=== PATIENT | male | born 1960 | race Caucasian/White ===

== ENCOUNTER 2024-04-15 14:21 | Inpatient (IN) | payer OTHER, SELFPAY ==
[~2024-04-15 14:21] MED LIST: Iopamidol-370 76% 500 ML MDV (1 ML CHARGE) ONE
[2024-04-15] MEDS ORDERED: NS ONE ×2 (17:24→21:37)
[2024-04-15] MEDS ORDERED: Vasopressin 20 UNITS/ML VIAL ONE (17:24)
[2024-04-15] MEDS ORDERED: Pantoprazole 40 MG VIAL ONE (17:24)
[2024-04-15] MEDS ORDERED: Aspirin 300 MG Suppository ONE ×2 (17:24)
[2024-04-15] MEDS ORDERED: NOREPINEPHRINE ONE ×2 (17:24→21:37)
[2024-04-15] MEDS ORDERED: cefTRIAXone (ROCEPHIN) 1 GM VIAL ONE (17:24)
[2024-04-15] MEDS ORDERED: Droperidol 5 MG/2 ML VIAL ONE ×2 (17:24)
[2024-04-15] MEDS ORDERED: Vasopressin In 0.9 % NaCl 40 UNIT in Premix 1 BAG IV SCH (20:30)
[2024-04-15] MEDS ORDERED: Albumin 25% 25 GM (100 mL) BOT ONE (21:37)
[2024-04-15] MEDS ORDERED: Sodium Bicarb 50 MEQ/50 ML Abboject 8.4% SYRINGE ONE (21:37)
[2024-04-15] MEDS ORDERED: Sodium Bicarb 50 MEQ/50 ML Abboject 8.4% SYRINGE IVP SCH (21:40)
[2024-04-16] MEDS ORDERED: Albumin 25% 25 GM (100 mL) BOT ONE ×3 (04:24→21:14)
[2024-04-16] MEDS ORDERED: cefTRIAXone (ROCEPHIN) 1 GM VIAL ONE (04:24)
[2024-04-16] MEDS ORDERED: NOREPINEPHRINE ONE (04:24)
[2024-04-16] MEDS ORDERED: NS ONE (04:24)
[2024-04-16] MEDS ORDERED: Pantoprazole 40 MG VIAL ONE (10:02)
[2024-04-16] MEDS ORDERED: Heparin 5,000 UNITS/ML VIAL ONE ×3 (10:02→21:14)
[2024-04-16] MEDS ORDERED: Magnesium 2 GM/50 ML(in water) 2 GM in Premix 1 BAG IVPB SCH (10:45)
[2024-04-16] MEDS ORDERED: Magnesium 2 GM/50 ML BAG (IN WATER) ONE (12:19)
[2024-04-16] MEDS ORDERED: POTASSIUM CHLORIDE 40 MEQ ONE (12:19)
[2024-04-16] MEDS ORDERED: Vancomycin 1 GM/200 ML (FROZEN) BAG ONE (15:30)
[2024-04-16] MEDS: Albumin 25% 25 GM (100 mL) BOT IVPB SCH (23:40)
[2024-04-16] MEDS: Sodium Chloride 0.9% 1,000 ML IV SCH (23:40)
[2024-04-16] MEDS: Potassium Chloride 20 MEQ in Premix 1 BAG IVPB SCH (23:41)
[2024-04-16] MEDS: cefTRIAXone\\ROCEPHIN 1 GM in Sodium Chloride 0.9% 100 ML IVPB SCH (23:41)
[2024-04-17 01:29] LABS: INR-International Normal Ratio 2.2; Prothrombin Time 24.7 sec (12.0-14.7)
[2024-04-17 01:32] LABS: #Neutrophils 8.83 10x3/uL (1.40-6.50); %Lymphocytes 4.8 % (21.0-51.0); %Monocytes 5.1 % (0.0-10.0); %Neutrophils 89.3 % (42.0-75.0); Hematocrit 23.6 % (42.0-52.0); Hemoglobin 7.6 g/dL (14.0-18.0); Mean Corpuscular HGB CONC 32.2 g/dL (32.0-36.0); Mean Corpuscular Hemoglobin 27.8 pg (27.0-31.0); Mean Corpuscular Volume 86.4 fL (78.0-98.0); Mean Platelet Volume 11.4 fL (7.4-10.4); Platelet Count 178 10x3/uL (130-400); RBC Distribution Width 21.3 % (11.5-14.5); Red Blood Cell (RBC) Count 2.73 mill/uL (4.70-6.10); White Blood Cell (WBC) Count 9.88 10x3/uL (4.8-10.8)
[2024-04-17] MEDS ORDERED: cefTRIAXone (ROCEPHIN) 1 GM VIAL ONE (03:49)
[2024-04-17] MEDS ORDERED: NOREPINEPHRINE ONE (03:49)
[2024-04-17] MEDS: cefTRIAXone\\ROCEPHIN 1 GM in Sodium Chloride 0.9% 100 ML IVPB SCH (03:49)
[2024-04-17] MEDS: Lactated Ringer's 1,000 ML IV SCH (03:49)
[2024-04-17] MEDS ORDERED: NS ONE (03:49)
[2024-04-17 04:39] VITALS: BMI 25.5
[2024-04-17] MEDS: NOREPINEPHRINE 8 MG/250 ML-D5W 250 ML IVPB SCH (04:40)
[2024-04-17 05:26] LABS: #Basophils Less than 0.03 10x3/uL (0.0-0.2); #Eosinophils Less than 0.03 10x3/uL (0.0-0.7); %Eosinophils 0.2 % (0.0-10.0); %Lymphocytes 5.6 % (21.0-51.0); %Monocytes 6.5 % (0.0-10.0); Hematocrit 26.6 % (42.0-52.0); Hemoglobin 8.5 g/dL (14.0-18.0); Mean Corpuscular Hemoglobin 27.8 pg (27.0-31.0); Mean Corpuscular Volume 86.9 fL (78.0-98.0); Mean Platelet Volume 10.7 fL (7.4-10.4); Platelet Count 122 10x3/uL (130-400); RBC Distribution Width 19.9 % (11.5-14.5); Red Blood Cell (RBC) Count 3.06 mill/uL (4.70-6.10)
[2024-04-17 05:31] LABS: INR-International Normal Ratio 1.7
[2024-04-17 05:32] LABS: PTT 39.6 sec (22.9-36.1)
[2024-04-17 06:01] LABS: ALT (SGPT) 42 U/L (8-55); AST (SGOT) 82 U/L (5-34); Albumin 2.9 g/dL (3.4-4.8); Alkaline Phosphatase 95 U/L (40-110); Anion Gap 15 mmol/L (10-20); BUN (Urea Nitrogen) 38 mg/dL (8.4-25.7); Calc. Creatinine Clearance 36 mL/min (70-130); Calcium 7.8 mg/dL (7.8-10.44); Carbon Dioxide 17 mmol/L (23-31); Chloride 117 mmol/L (98-107); Estimated GFR 37; Globulin 3.2 g/dL (2.4-3.5); Glucose 137 mg/dL (80-115); Potassium 2.2 mmol/L (3.5-5.1); Protein, Total 6.1 g/dL (5.8-8.1); Sodium 147 mmol/L (136-145)
[2024-04-17 06:35] LABS: Anisocytosis SLIGHT = 6-15 cells HPF (0-5); Burr Cells SLIGHT = 2-5 cells HPF (0-1); Hypochromia SLIGHT = 6-15 cells HPF (0-5); Platelet Adequacy Comment Platelets Decreased; Poikilocytosis SLIGHT = 6-15 cells HPF (0-5); Polychromasia SLIGHT = 2-3 cells HPF (0-2); Schistocytes SLIGHT = 2-5 cells HPF (0-1)
[2024-04-17] MEDS ORDERED: Potassium Chloride 20 MEQ (100 mL) BAG ONE (06:35)
[2024-04-17] MEDS: Potassium Chloride 20 MEQ in Premix 1 BAG IVPB SCH (07:15)
[2024-04-17 07:57] LABS: ALT (SGPT) 45 U/L (8-55); AST (SGOT) 142 U/L (5-34); Albumin 2.2 g/dL (3.4-4.8); Alkaline Phosphatase 91 U/L (40-110); Anion Gap 20 mmol/L (10-20); BUN (Urea Nitrogen) 43 mg/dL (8.4-25.7); Calc. Creatinine Clearance 35 mL/min (70-130); Calcium 7.4 mg/dL (7.8-10.44); Carbon Dioxide 12 mmol/L (23-31); Chloride 114 mmol/L (98-107); Estimated GFR 36; Globulin 3.6 g/dL (2.4-3.5); Glucose 148 mg/dL (80-115); Magnesium 1.8 mg/dL (1.6-2.6); Phosphorus 6.2 mg/dL (2.3-4.7); Protein, Total 5.8 g/dL (5.8-8.1); Sodium 143 mmol/L (136-145)
[2024-04-17 08:02] LABS: Lactic Acid 1.12 mmol/L (0.5-2.2)
[2024-04-17 10:43] LABS: Magnesium 2.2 mg/dL (1.6-2.6)
[2024-04-17] MEDS: Potassium Chloride 40 MEQ in Sodium Chloride 0.45% 1,000 ML IV SCH (10:56)
[2024-04-17] MEDS ORDERED: Vancomycin Dose by Levels Sliding Scale (Wt <71) FS SCH (11:45)
[2024-04-17] MEDS ORDERED: Electrolyte Replacement Protocol FS PRN (13:00)
[2024-04-17] MEDS ORDERED: Electrolyte Replacement Protocol 1 EACH FS SCH (13:00)
[2024-04-17 13:08] LABS: Hematocrit 22.7 % (42.0-52.0); Hemoglobin 7.3 g/dL (14.0-18.0)
[2024-04-17 13:16] LABS: Vancomycin, Trough 17.7 ug/mL
[2024-04-17] MEDS ORDERED: Vancomycin 1 GM in Premix 1 BAG IVPB SCH (15:00)
[2024-04-17 15:02] LABS: Hematocrit 24.4 % (42.0-52.0); Hemoglobin 7.8 g/dL (14.0-18.0); Mean Corpuscular Volume 87.5 fL (78.0-98.0); Mean Platelet Volume 10.8 fL (7.4-10.4); Platelet Count 128 10x3/uL (130-400); RBC Distribution Width 20.2 % (11.5-14.5); Red Blood Cell (RBC) Count 2.79 mill/uL (4.70-6.10)
[2024-04-17] MEDS: Vancomycin HCl 500 MG in Sodium Chloride 0.9% 100 ML IVPB SCH (15:55)
[2024-04-17 16:31] LABS: Potassium 2.5 mmol/L (3.5-5.1)
[2024-04-17] MEDS: LevoFLOXacin 250 mg/D5W 250 MG in Premix 1 BAG IVPB SCH (17:00)
[2024-04-17] MEDS: Potassium Chloride 40 MEQ in Premix 1 BAG IVPB SCH (17:06)
[2024-04-17] MEDS: metroNIDAZOLE 500 MG in Premix 1 BAG IVPB SCH (21:54)
[2024-04-18 05:52] LABS: ALT (SGPT) 36 U/L (8-55); AST (SGOT) 56 U/L (5-34); Albumin 2.4 g/dL (3.4-4.8); Alkaline Phosphatase 87 U/L (40-110); Anion Gap 12 mmol/L (10-20); BUN (Urea Nitrogen) 33 mg/dL (8.4-25.7); Bilirubin, Total 0.8 mg/dL (0.2-1.2); Calc. Creatinine Clearance 44 mL/min (70-130); Calcium 7.7 mg/dL (7.8-10.44); Carbon Dioxide 17 mmol/L (23-31); Chloride 118 mmol/L (98-107); Estimated GFR 47; Glucose 109 mg/dL (80-115); Magnesium 1.8 mg/dL (1.6-2.6); Potassium 2.8 mmol/L (3.5-5.1); Protein, Total 5.4 g/dL (5.8-8.1); Sodium 144 mmol/L (136-145)
[2024-04-18 06:17] LABS: #Basophils Less than 0.03 10x3/uL (0.0-0.2); %Eosinophils 0.8 % (0.0-10.0); %Lymphocytes 4.8 % (21.0-51.0); Hematocrit 28.1 % (42.0-52.0); Hemoglobin 8.9 g/dL (14.0-18.0); Mean Corpuscular HGB CONC 31.7 g/dL (32.0-36.0); Mean Corpuscular Volume 88.4 fL (78.0-98.0); Mean Platelet Volume 9.8 fL (7.4-10.4); Platelet Count 93 10x3/uL (130-400); RBC Distribution Width 20.7 % (11.5-14.5); Red Blood Cell (RBC) Count 3.18 mill/uL (4.70-6.10)
[2024-04-18] MEDS: Magnesium 2 GM/50 ML(in water) 2 GM in Premix 1 BAG IVPB SCH (07:38)
[2024-04-18] MEDS: Potassium Bicarbonate/Cit Ac 20 MEQ TAB PO SCH (07:38)
[2024-04-18] MEDS: Sodium Bicarbonate 75 MEQ in Dextrose 5 %-0.45 % NaCl 1,000 ML IV SCH (15:19)
[2024-04-18] MEDS: FLU (Fluarix Triv) TS24-25(6MOS UP)/PF 45 MCG/0.5 ML Syringe IM ONE (15:35)
[2024-04-18] MEDS: LevoFLOXacin 750 mg/D5W 750 MG in Premix 1 BAG IVPB SCH (18:39)
[2024-04-19 10:11] LABS: Hematocrit 28.3 % (42.0-52.0); Mean Corpuscular HGB CONC 31.8 g/dL (32.0-36.0); Mean Corpuscular Hemoglobin 27.8 pg (27.0-31.0); Mean Corpuscular Volume 87.3 fL (78.0-98.0); Platelet Count 70 10x3/uL (130-400); RBC Distribution Width 20.6 % (11.5-14.5); Red Blood Cell (RBC) Count 3.24 mill/uL (4.70-6.10)
[2024-04-19 10:33] LABS: Anisocytosis MARKED = >30 cells HPF (0-5); Burr Cells SLIGHT = 2-5 cells HPF (0-1); Macrocytosis MODERATE=16-30 cells HPF (0-5); Ovalocytes SLIGHT = 2-5 cells HPF (0-1); Platelet Adequacy Comment Platelets Decreased; Polychromasia MODERATE = 3-4 cells HPF (0-2); Schistocytes SLIGHT = 2-5 cells HPF (0-1)
[2024-04-19 10:35] LABS: Anion Gap 11 mmol/L (10-20); BUN (Urea Nitrogen) 27 mg/dL (8.4-25.7); Calc. Creatinine Clearance 59 mL/min (70-130); Calcium 7.4 mg/dL (7.8-10.44); Carbon Dioxide 15 mmol/L (23-31); Chloride 111 mmol/L (98-107); Estimated GFR 66; Glucose 161 mg/dL (80-115); Magnesium 1.7 mg/dL (1.6-2.6); Sodium 134 mmol/L (136-145)
[2024-04-19 10:36] LABS: #Basophils Less than 0.03 10x3/uL (0.0-0.2); %Basophils 0.2 % (0.0-1.0); %Eosinophils 1.2 % (0.0-10.0); %Lymphocytes 5.6 % (21.0-51.0); %Monocytes 8.7 % (0.0-10.0); %Neutrophils 83.5 % (42.0-75.0)
[2024-04-19] MEDS: Potassium Bicarbonate/Cit Ac 20 MEQ TAB PO SCH (12:11)
[2024-04-19] MEDS: Magnesium 2 GM/50 ML(in water) 2 GM in Premix 1 BAG IVPB SCH (12:11)
[2024-04-20 06:57] LABS: ALT (SGPT) 29 U/L (8-55); AST (SGOT) 31 U/L (5-34); Albumin 2.5 g/dL (3.4-4.8); Alkaline Phosphatase 86 U/L (40-110); Anion Gap 10 mmol/L (10-20); BUN (Urea Nitrogen) 22 mg/dL (8.4-25.7); Calc. Creatinine Clearance 75 mL/min (70-130); Calcium 7.7 mg/dL (7.8-10.44); Carbon Dioxide 18 mmol/L (23-31); Chloride 111 mmol/L (98-107); Estimated GFR 83; Globulin 3.1 g/dL (2.4-3.5); Glucose 109 mg/dL (80-115); Potassium 3.2 mmol/L (3.5-5.1); Protein, Total 5.6 g/dL (5.8-8.1); Sodium 136 mmol/L (136-145)
[2024-04-20 08:04] LABS: #Basophils Less than 0.03 10x3/uL (0.0-0.2); %Basophils 0.2 % (0.0-1.0); %Eosinophils 1.4 % (0.0-10.0); %Lymphocytes 5.8 % (21.0-51.0); %Monocytes 12.8 % (0.0-10.0); %Neutrophils 79.3 % (42.0-75.0); Hematocrit 29.7 % (42.0-52.0); Hemoglobin 9.3 g/dL (14.0-18.0); Mean Corpuscular HGB CONC 31.3 g/dL (32.0-36.0); Mean Corpuscular Hemoglobin 27.9 pg (27.0-31.0); Mean Corpuscular Volume 89.2 fL (78.0-98.0); Platelet Count 64 10x3/uL (130-400); RBC Distribution Width 20.9 % (11.5-14.5); Red Blood Cell (RBC) Count 3.33 mill/uL (4.70-6.10)
[2024-04-20 09:32] LABS: Burr Cells SLIGHT = 2-5 cells HPF (0-1); Hypersegmented Neutrophil SLIGHT (None Seen); Platelet Adequacy Comment Platelets Decreased; Polychromasia SLIGHT = 2-3 cells HPF (0-2); Schistocytes SLIGHT = 2-5 cells HPF (0-1); Tear Drops SLIGHT = 2-5 cells HPF (0-1)
[2024-04-20 10:59] LABS: Lactic Acid 2.11 mmol/L (0.5-2.2)
[2024-04-20] MEDS ORDERED: Lidocaine 1% PF 5 ML VIAL ONE (11:19)
[2024-04-20 11:39] LABS: Bilirubin 1+ (Negative); Blood, Urine Trace (Negative); Clarity Clear (Clear); Glucose, Urine (Dipstick) Negative (Negative); Ketone, Urine Trace mg/dL (Negative); Leukocyte 75 Leu/uL (Negative); Nitrite Negative (Negative); Protein, Urine (Dipstick) 50 mg/dL (Neg-Trace); Specific Gravity, Urine 1.017 (1.002-1.036); Squamous Epithelial 0-3 HPF (0-3); Urobilinogen Normal mg/dL (Less than 2)
[2024-04-20 11:40] LABS: Cocaine Metabolite Screen Not Detected (NotDetected); Methamphetamine Detected (NotDetected); Phencyclidine (PCP) Not Detected (NotDetected); THC/Cannabinoid Screen Not Detected (NotDetected)
[2024-04-20 11:41] LABS: Amphetamine Not Detected (NotDetected); Barbiturates Screen Not Detected (NotDetected); Benzodiazepine Screen Not Detected (NotDetected); Methadone Not Detected (NotDetected); Opiate Screen Not Detected (NotDetected); Oxycodone Screen Not Detected (NotDetected); Tricyclic Screen Not Detected (NotDetected)
[2024-04-20 12:46] VITALS: BMI 27.2
[2024-04-20] MEDS: Potassium Bicarbonate/Cit Ac 20 MEQ TAB PO SCH (13:58)
[2024-04-20] MEDS: LevoFLOXacin 750 mg/D5W 750 MG in Premix 1 BAG IVPB SCH (14:38)
[2024-04-20] MEDS: metroNIDAZOLE 500 MG TAB PO SCH (20:40)
[2024-04-21] MEDS: LevoFLOXacin 500 MG TAB PO SCH (05:33)
[2024-04-21 06:59] LABS: #Basophils Less than 0.03 10x3/uL (0.0-0.2); %Basophils 0.2 % (0.0-1.0); %Eosinophils 1.4 % (0.0-10.0); %Lymphocytes 7.1 % (21.0-51.0); %Monocytes 13.6 % (0.0-10.0); %Neutrophils 77.1 % (42.0-75.0); Hematocrit 32.2 % (42.0-52.0); Mean Corpuscular HGB CONC 31.1 g/dL (32.0-36.0); Mean Corpuscular Hemoglobin 27.9 pg (27.0-31.0); Mean Corpuscular Volume 89.9 fL (78.0-98.0); Platelet Count 66 10x3/uL (130-400); RBC Distribution Width 21.4 % (11.5-14.5); Red Blood Cell (RBC) Count 3.58 mill/uL (4.70-6.10)
[2024-04-21 07:03] LABS: Anion Gap 10 mmol/L (10-20); BUN (Urea Nitrogen) 16 mg/dL (8.4-25.7); Calc. Creatinine Clearance 87 mL/min (70-130); Calcium 7.5 mg/dL (7.8-10.44); Carbon Dioxide 19 mmol/L (23-31); Chloride 109 mmol/L (98-107); Estimated GFR 97; Glucose 104 mg/dL (80-115); Potassium 3.7 mmol/L (3.5-5.1); Sodium 134 mmol/L (136-145)
[2024-04-21 11:42] LABS: ALT (SGPT) 45 U/L (8-55); AST (SGOT) 163 U/L (5-34); Albumin 1.9 g/dL (3.4-4.8); Alkaline Phosphatase 95 U/L (40-110); Anion Gap 17 mmol/L (10-20); BUN (Urea Nitrogen) 45 mg/dL (8.4-25.7); Calc. Creatinine Clearance 35 mL/min (70-130); Calcium 7.1 mg/dL (7.8-10.44); Carbon Dioxide 15 mmol/L (23-31); Chloride 115 mmol/L (98-107); Estimated GFR 34; Globulin 3.5 g/dL (2.4-3.5); Glucose 129 mg/dL (80-115); Potassium 3.4 mmol/L (3.5-5.1); Protein, Total 5.4 g/dL (5.8-8.1); Sodium 144 mmol/L (136-145)
[2024-04-21 13:40] VITALS: BP 110/72; TEMP 98.1
[2024-04-26 14:43] LABS: Troponin I 0.157 ng/mL (< 0.028)
[2024-04-26 15:23] LABS: Anion Gap 20 mmol/L (10-20); BUN (Urea Nitrogen) 41 mg/dL (8.4-25.7); Calc. Creatinine Clearance 0 mL/min (70-130); Carbon Dioxide 14 mmol/L (23-31); Chloride 113 mmol/L (98-107); Estimated GFR 30; Potassium 3.9 mmol/L (3.5-5.1); Sodium 143 mmol/L (136-145)
[2024-04-26 15:25] LABS: ALT (SGPT) 48 U/L (8-55); AST (SGOT) 195 U/L (5-34); Acetaminophen Less than 10 mcg/mL (Less than 10); Albumin 1.9 g/dL (3.4-4.8); Alkaline Phosphatase 95 U/L (40-110); Bilirubin, Total 1.5 mg/dL (0.2-1.2); Globulin 3.8 g/dL (2.4-3.5); Glucose 40 mg/dL (80-115); Magnesium 1.9 mg/dL (1.6-2.6); Protein, Total 5.7 g/dL (5.8-8.1)
[2024-04-26 15:26] LABS: Alcohol Less than 10.0 mg/dL (Less than 10); Salicylate Less than 8.0 mg/dL (Less than 8.0)
[2024-04-26 15:37] LABS: %Basophils 0.1 % (0.0-1.0); %Lymphocytes 3.6 % (21.0-51.0); %Monocytes 4.6 % (0.0-10.0); %Neutrophils 91.3 % (42.0-75.0); Hematocrit 23.6 % (42.0-52.0); Hemoglobin 7.8 g/dL (14.0-18.0); Mean Corpuscular HGB CONC 33.1 g/dL (32.0-36.0); Mean Corpuscular Hemoglobin 28.1 pg (27.0-31.0); Mean Corpuscular Volume 84.9 fL (78.0-98.0); Mean Platelet Volume 10.9 fL (7.4-10.4); Platelet Count 210 10x3/uL (130-400); RBC Distribution Width 21.5 % (11.5-14.5); Red Blood Cell (RBC) Count 2.78 mill/uL (4.70-6.10)
[2024-04-26 15:38] LABS: #Basophils Less than 0.03 10x3/uL (0.0-0.2); #Eosinophils Less than 0.03 10x3/uL (0.0-0.7)
[2024-04-27 10:47] LABS: CAUTI Indications for Culture Alt mental st,lethar
[2024-04-28 14:23] LABS: Lactic Acid 1.29 mmol/L (0.5-2.2)
== END 2024-04-21 15:55 | disposition home or self-care (01) | DRG 871 ==
LOC: ERS 14:21 → CCU 17:35 → SURG B 04-18 11:08
PROVIDERS: ADMIT Internal Medicine; ATTEND Hospitalist
PROC: 0T9B70Z Drainage of Bladder with Drainage Device, Via Natural or Artificial Opening (ICD-10-PCS; principal; 2024-04-15)
PROC: 03HY32Z Insertion of Monitoring Device into Upper Artery, Percutaneous Approach (ICD-10-PCS; 2024-04-15)
PROC: 4A133B1 Monitoring of Arterial Pressure, Peripheral, Percutaneous Approach (ICD-10-PCS; 2024-04-15)
PROC: 4A133J1 Monitoring of Arterial Pulse, Peripheral, Percutaneous Approach (ICD-10-PCS; 2024-04-15)
PROC: 06HY33Z Insertion of Infusion Device into Lower Vein, Percutaneous Approach (ICD-10-PCS; 2024-04-15)
PROC: 0W9G3ZZ Drainage of Peritoneal Cavity, Percutaneous Approach (ICD-10-PCS; 2024-04-20)
DX: A41.9 Sepsis, unspecified organism (principal); J96.01 Acute respiratory failure with hypoxia; R65.21 Severe sepsis with septic shock; N17.9 Acute kidney failure, unspecified; D64.9 Anemia, unspecified; K40.90 Unilateral inguinal hernia, without obstruction or gangrene, not specified as recurrent; K52.9 Noninfective gastroenteritis and colitis, unspecified; E87.6 Hypokalemia; J44.9 Chronic obstructive pulmonary disease, unspecified; N18.9 Chronic kidney disease, unspecified; Z79.899 Other long term (current) drug therapy; K70.31 Alcoholic cirrhosis of liver with ascites
CPT/HCPCS: 36415; 36430; 36556; 49083; 51702; 70450; 71045; 71250; 74018; 74177; 80048; 80053; 80202; 80306; 80307; 81001; 81003; 81015; 82140; 82533; 83605; 83735; 84100; 84145; 84484; 85025; 85610; 85730; 86850; 86900; 86901; 87040; 87324; 87449; 93005; 96365; 96366; 96375; 96376; J0696; J1644; J1790; J1956; J2470; J3370; J3370-JW; J3475; J3480; J7042; P9016; P9047; Q9967